=== PATIENT | male | born 1990 | race American Indian/Alaskan Native ===

== ENCOUNTER 2019-10-04 13:10 | Emergency (ER) | payer SELFPAY ==
--- NOTE | 2019-10-04 14:50 | Event Note ---
ED Screening Note Date of service: 10/04/19 Time: 14:45 ED Screening Note: 28 yo male with PMH of asthma. C/o of cough congestion and wheezing. Denies fever nausea and vomiting. States he's traveled from [place] no inhalers with him. This initial assessment/diagnostic orders/clinical plan/treatment(s) is/are subject to change based on patients health status, clinical progression and re- assessment by fellow clinical providers in the ED. Further treatment and workup at subsequent clinical providers discretion. Patient/guardian urged not to elope from the ED as their condition may be serious if not clinically assessed and managed. Initial orders include: Thiagooneb
[2019-10-04] MEDS ORDERED: ALBUTEROL 2.5 MG/3 ML NEBU IH ONE (16:25)
[2019-10-04] MEDS ORDERED: predniSONE 20 MG TAB PO ONE (16:25)
[2019-10-04] MEDS ORDERED: IPRATROPIUM 0.02% NEBU 2.5 ML IH ONE (16:25)
--- NOTE | 2019-10-04 17:37 | Emergency Department Report ---
<FELICITA GIBBS - Last Filed: 10/04/19 17:36> ED General Adult HPI - General Chief complaint: Upper Respiratory Infection Stated complaint: COLD SYM/DIZZY Time Seen by Provider: 10/04/19 14:43 Source: patient Mode of arrival: Ambulatory Limitations: No Limitations - History of Present Illness Initial comments: Patient is a 28-year-old male who is presenting with cough cold congestion flulike symptoms for the past 2 days. Patient has body aches. Patient has been sweating profusely and states he's had a possible fever but has not taken objective fever. Patient's cough is productive of clear to yellow sputum. Patient denies sore throat nausea vomiting or diarrhea at this time. Severity scale (0 -10): 3 - Related Data Previous Rx's Medication Instructions Recorded Last Taken Type ALBUTEROL Inhaler (OR & NICU) 1 puff IH QID PRN #8.5 gram 10/04/19 Unknown Rx [ProAir HFA Inhaler] ALBUTEROL NEB's [Proventil 0.083% 2.5 mg IH TID PRN #1 box 10/04/19 Unknown Rx NEBS] Nebulizer and Compressor [Easy Neb 1 each MC TID PRN #1 each 10/04/19 Unknown Rx Compressor Nebulizer] predniSONE [Deltasone] 20 mg PO QDAY 5 Days #5 tab 10/04/19 Unknown Rx Allergies Allergy/AdvReac Type Severity Reaction Status Date / Time peanut Allergy Shortness Verified 10/04/19 13:16 of Breath ED Review of Systems Comment: All other systems reviewed and negative ED Past Medical Hx - Past Medical History Previous Medical History?: Yes Additional medical history: "autoimmune pancreatitis" - Surgical History Past Surgical History?: Yes Hx Cholecystectomy: Yes - Medications Home Medications: Home Medications Medication Instructions Recorded Confirmed Last Taken Type ALBUTEROL Inhaler (OR & NICU) 1 puff IH QID PRN #8.5 gram 10/04/19 Unknown Rx [ProAir HFA Inhaler] ALBUTEROL NEB's [Proventil 0.083% 2.5 mg IH TID PRN #1 box 10/04/19 Unknown Rx NEBS] Nebulizer and Compressor [Easy Neb 1 each MC TID PRN #1 each 10/04/19 Unknown Rx Compressor Nebulizer] predniSONE [Deltasone] 20 mg PO QDAY 5 Days #5 tab 10/04/19 Unknown Rx ED Physical Exam - General Limitations: No Limitations General appearance: alert, in no apparent distress - Head Head exam: Present: atraumatic, normocephalic - Eye Eye exam: Present: normal appearance, PERRL, EOMI - ENT ENT exam: Present: mucous membranes moist - Neck Neck exam: Present: normal inspection - Respiratory Respiratory exam: Present: respiratory distress, wheezes. Absent: normal lung sounds bilaterally, rales, rhonchi - Cardiovascular Cardiovascular Exam: Present: regular rate, normal rhythm, normal heart sounds. Absent: systolic murmur, diastolic murmur, rubs, gallop - GI/Abdominal GI/Abdominal exam: Present: soft, normal bowel sounds. Absent: distended, tenderness, guarding - Rectal Rectal exam: Present: deferred - Extremities Exam Extremities exam: Present: normal inspection - Back Exam Back exam: Present: normal inspection - Neurological Exam Neurological exam: Present: alert, oriented X3 - Psychiatric Psychiatric exam: Present: normal affect, normal mood - Skin Skin exam: Present: warm, dry, intact, normal color. Absent: rash ED Course - Reevaluation(s) Reevaluation #1: 10/04/19 17:37 Patient has very classic flulike symptoms. Patient was wheezing and does have a history of asthma. He was given hour-long treatment and the patient will be reassessed. ED Disposition Clinical Impression: Asthma exacerbation Disposition: DC-01 TO HOME OR SELFCARE Condition: Stable Prescriptions: predniSONE [Deltasone] 20 mg PO QDAY 5 Days #5 tab Nebulizer and Compressor [Easy Neb Compressor Nebulizer] 1 each MC TID PRN #1 each PRN Reason: Wheezing ALBUTEROL Inhaler (OR & NICU) [ProAir HFA Inhaler] 1 puff IH QID PRN #8.5 gram PRN Reason: Shortness Of Breath ALBUTEROL NEB's [Proventil 0.083% NEBS] 2.5 mg IH TID PRN #1 box PRN Reason: Wheezing <DIXIE AGUEROSharmaine Ponce - Last Filed: 10/04/19 21:16> ED General Adult HPI - History of Present Illness Onset/Timin Consistency: constant Associated Symptoms: cough, shortness of breath ED Review of Systems ROS: Stated complaint: COLD SYM/DIZZY Other details as noted in HPI ED Physical Exam - ENT ENT exam: Present: mucous membranes moist - Neck Neck exam: Present: normal inspection - Respiratory Respiratory exam: Present: wheezes, chest wall tenderness. Absent: respiratory distress - Cardiovascular Cardiovascular Exam: Present: normal rhythm, normal heart sounds. Absent: systolic murmur, diastolic murmur, rubs, gallop - Neurological Exam Neurological exam: Present: CN II-XII intact, normal gait - Psychiatric Psychiatric exam: Absent: homicidal ideation, suicidal ideation - Skin Skin exam: Absent: diaphoretic ED Course Vital Signs 10/04/19 10/04/19 10/04/19 14:46 16:55 19:25 Temperature 98.6 F Pulse Rate 88 Pulse Rate [ 65 Bilateral] Respiratory 18 18 Rate Respiratory 18 Rate [Bilateral ] Blood Pressure 149/88 [Right] O2 Sat by Pulse 98 Oximetry ED Medical Decision Making - Medical Decision Making Patient is a 28-year-old male who is presenting with cough cold congestion flulike symptoms for the past 2 days. Patient has body aches. Patient has been sweating profusely and states he's had a possible fever but has not taken objective fever. Patient's cough is productive of clear to yellow sputum. Patient denies sore throat nausea vomiting or diarrhea at this time. Patient was given 5 mg of albuterol one of Atrovent magnesium 2 mg IV, normal saline 1 L, steroids. Patient to be discharged home with a nebulizer machine albuterol nebulizer nebs as well as a albuterol inhaler and prednisone 20 mg daily for the next 5 days. Critical care attestation.: If time is entered above; I have spent that time in minutes in the direct care of this critically ill patient, excluding procedure time. ED Disposition Is pt being admited?: No Does the pt Need Aspirin: No
[2019-10-04] MEDS ORDERED: MAGNESIUM SULFATE 2 GM/50 ML BAG IV ONE (19:00)
[2019-10-04] MEDS ORDERED: IBUPROFEN 600 MG TAB PO ONE (19:00)
[2019-10-04] MEDS ORDERED: SODIUM CHLORIDE 0.9% 1000 ML 1,000 ML IV ONE (19:00)
--- NOTE | 2019-10-04 19:42 | XRay Report ---
CHEST 2 VIEWS INDICATION / CLINICAL INFORMATION: MAIN: sob fever; Pt received with c/o upper respiratory congestion and possible fever since last nigh t. . COMPARISON: None available. FINDINGS: SUPPORT DEVICES: None. HEART / MEDIASTINUM: No significant abnormality. LUNGS / PLEURA: No significant pulmonary or pleural abnormality. No pneumothorax. ADDITIONAL FINDINGS: Right sided aortic arch. IMPRESSION: 1. No acute findings. Signer Name: Yohan Yost MD Signed: 10/04/2019 7:38 PM Workstation Name: [id number]
[2019-10-04] MEDS ORDERED: IPRATROPIUM/ALBUTEROL SULFATE 3 ML AMPUL.NEB IH SCH (20:00)
[2019-10-04 21:33] VITALS: BP 156/91
== END 2019-10-04 21:20 | disposition home or self-care (01) ==
LOC: ED 13:10
DX: J45.21 Mild intermittent asthma with (acute) exacerbation (principal); Z90.49 Acquired absence of other specified parts of digestive tract; Z79.899 Other long term (current) drug therapy; Z91.010 Allergy to peanuts
CPT/HCPCS: 71046; 94640; 96365; 99283; J3475; J7030; J7512; 94644